=== PATIENT | female | born 1970 | race Caucasian/White ===

== ENCOUNTER 2018-06-17 08:58 | Emergency (ER) | payer BC ==
[~2018-06-17] VITALS: Ht 167.6 cm; Wt 83.8 kg
[2018-06-17 09:03] VITALS: TEMP 36.6; Ht 167.6 cm; Wt 83.8 kg
[2018-06-17] MEDS ORDERED: CYCLOBENZAPRINE HCL 10 MG TAB PO STA (09:46)
[2018-06-17] MEDS ORDERED: KETOROLAC TROMETHAMINE 60 MG/2 ML VIAL IM STA (09:46)
--- NOTE | 2018-06-17 10:36 | DIAGNOSTIC IMAGING REPORT ---
L-SPINE MIN 4 VIEWS ROUTINE HISTORY: 47 years-old Female low back pain acute low back pain without known injury COMPARISON: None available TECHNIQUE: 5 views of the lumbar spine FINDINGS: 5 nonrib-bearing lumbar type vertebral segments are present. No spondylolysis or spondylolisthesis. Moderate intervertebral disc space narrowing at L5-S1 with at least mild multilevel intervertebral disc space narrowing and spondylitic spurring. Mild multilevel facet arthrosis. No spondylolysis or spondylolisthesis. Surgical suture material projects over the left mid and left upper abdomen. Moderate formed colonic stool. Calcification of the aorta. IMPRESSION: 1. No acute fracture or subluxation. 2. Degenerative changes as above with moderate intervertebral disc space narrowing at L5-S1. 3. Moderate formed colonic stool suggests constipation. The above report was generated using voice recognition software. It may contain grammatical, syntax or spelling errors. Electronically signed by: Dwain Robledo M.D. 06/17/2018 10:35 AM Dictated Date/Time: 06/17/2018 10:33 AM
[2018-06-17] MEDS ORDERED: DICL1GEL12 TD (10:47)
[2018-06-17] MEDS ORDERED: CYCL5TAB PO (10:47)
--- NOTE | 2018-06-17 10:48 | EMERGENCY ROOM VISIT NOTE ---
ED Visit Note First contact with patient: 09:09 CHIEF COMPLAINT: Low back pain HISTORY OF PRESENT ILLNESS: This 47-year-old female patient presents to the emergency department, ambulatory, complaining of pain in the low back which began 3 days ago. The patient states she recently got a puppy and has been bending and lifting more than normal. She states today she is unable to bend down to get the dog leash. She states the pain seems to improve throughout the day, however seem to get worse today. She does report history of a bulging disc at 21 years old. She reports pain with sitting and standing, and feeling better with hunching of her lying down. The pain was gradual in onset, is now constant and worse with movement. The patient notes the pain as sharp and a 8/ 10. The patient has taken no medications for relief of the pain. The patient denies any loss of control of their bowel or bladder functions. There has been no leg numbness or weakness, and no change in sensation. No nausea or vomiting or abdominal pain. No chest pain or shortness of breath. No dysuria or increased urinary frequency. REVIEW OF SYSTEMS: A 10 system review of systems was performed with positives and pertinent negatives listed in the history of present illness. All other systems were reviewed and are negative. ALLERGIES: None MEDICATIONS: None PMH: Gastric bypass SOCIAL HISTORY: The patient lives locally with family. She denies drug, alcohol, tobacco use. PHYSICAL EXAM: VITALS: Vitals are noted on the nurse's note and reviewed by myself. Vital signs stable. GENERAL: This is a 47-year-old white female, in no acute distress, nondiaphoretic, well-developed well-nourished. SKIN: The skin was without rashes, erythema, edema, or bruising. Capillary refill less than 2 seconds. NECK: Supple without nuchal rigidity. No cervical spine tenderness. No paraspinous muscle tenderness. HEART: Regular rate and rhythm without murmurs gallops or rubs. LUNGS: Clear to auscultation bilaterally without wheezes, rales or rhonchi. ABDOMEN: Positive bowel sounds x 4. Normal tympanic percussion. Soft, nontender, without masses or organomegaly. Choi sign negative. Negative CVA tenderness bilaterally. MUSCULOSKELETAL: No muscle atrophy, erythema, or edema noted of the back. There is mild tenderness over the lumbar spinous processes. There is tenderness over the paraspinous muscles on the right. There is no tenderness over the thoracic spine or paraspinous muscles. There are no muscle spasms present. The patient is slow to move around with maximum tenderness with lying from a sitting position. Negative bilateral straight leg raise test. NEURO: Patient was alert and oriented to person place and time. Normal sensation to light and sharp touch. Deep tendon reflexes 2+ in the lower extremities. Dorsalis pedis pulse 2+ bilaterally. Strength 5/5 and equal in the bilateral lower extremities. RADIOLOGY: L-SPINE MIN 4 VIEWS ROUTINE HISTORY: 47 years-old Female low back pain acute low back pain without known injury COMPARISON: None available TECHNIQUE: 5 views of the lumbar spine FINDINGS: 5 nonrib-bearing lumbar type vertebral segments are present. No spondylolysis or spondylolisthesis. Moderate intervertebral disc space narrowing at L5-S1 with at least mild multilevel intervertebral disc space narrowing and spondylitic spurring. Mild multilevel facet arthrosis. No spondylolysis or spondylolisthesis. Surgical suture material projects over the left mid and left upper abdomen. Moderate formed colonic stool. Calcification of the aorta. IMPRESSION: 1. No acute fracture or subluxation. 2. Degenerative changes as above with moderate intervertebral disc space narrowing at L5-S1. 3. Moderate formed colonic stool suggests constipation. The above report was generated using voice recognition software. It may contain grammatical, syntax or spelling errors. Electronically signed by: Dwain Robledo M.D. 06/17/2018 10:35 AM Dictated Date/Time: 06/17/2018 10:33 AM EMERGENCY DEPARTMENT COURSE: The patient was seen and evaluated as above. She was given Toradol and cyclobenzaprine for pain. X-ray performed reviewed by myself and radiologist as above. I discussed the findings with the patient at bedside. I did discuss with her the degenerative changes with moderate intervertebral disc space narrowing at L5-S1 with the patient and encouraged her to monitor this with her PCP. She was reassessed and is feeling significantly better. Suspect a muscular strain as the cause of the patient's symptoms, and encouraged her to use anti-inflammatory medications and muscle relaxers with close follow-up by the primary care provider. The patient verbalized agreement and understanding. All questions answered to patient's satisfaction prior to discharge. Discharge instructions reviewed, patient was discharged home in good condition. I attest that I have personally reviewed the patient's current medication list. Blood Pressure Screening: Patient was found to have a slightly elevated blood pressure due to circumstances. I do not believe that the patient requires hypertension monitoring. Etiologies such as lumbago, sciatica, cauda equina, epidural abscess, osteomyelitis, fracture, aortic disease, metastatic disease, infection, renal colic, gastrointestinal, as well as others were entertained. DIAGNOSIS: Lumbar strain The chart was completed utilizing [employer] voice recognition software. Grammatical errors, random word insertions, pronoun errors, and incomplete sentences are an occasional consequence of this system due to software limitations, ambient noise, and hardware issues. Any formal questions or concerns about the content, text, or information contained within the body of this dictation should be directly addressed to the provider for clarification. Current/Historical Medications Scheduled PRN Cyclobenzaprine Hcl (Flexeril), 10 MG PO TID PRN for Muscle Spasms Diclofenac Sodium (Topical) (Voltaren 1% Top Gel), 1 APPLN TD QID PRN for Pain Allergies Coded Allergies: No Known Allergies (Unverified , 06/17/18) Vital Signs Date Time Temp Pulse Resp B/P (MAP) Pulse Ox O2 Delivery O2 Flow Rate FiO2 06/17/18 10:55 51 18 134/85 98 06/17/18 10:44 51 18 134/85 98 Room Air 06/17/18 09:03 36.6 59 18 148/94 97 Room Air Medications Administered Medications (Trade) Dose Ordered Sig/Christina Route Start Time Stop Time Status Last Admin Dose Admin Ketorolac Tromethamine (Toradol Inj) 60 mg NOW STAT IM 06/17/18 09:46 06/17/18 09:48 DC 06/17/18 09:52 60 MG Cyclobenzaprine HCl (Flexeril Tab) 10 mg NOW STAT PO 06/17/18 09:46 06/17/18 09:48 DC 06/17/18 09:52 10 MG Departure Information Impression Primary Impression: Strain of lumbar region Dispostion Home / Self-Care Condition GOOD Prescriptions Diclofenac Sodium (Topical) (VOLTAREN 1% TOP GEL) 1 % Gel 1 APPLN TD QID Y for Pain, #1 TUBE Prov: Marija Main, PA-C 06/17/18 Cyclobenzaprine Hcl (FLEXERIL) 5 Mg Tab 10 MG PO TID Y for Muscle Spasms, #15 TAB PRN Prov: Marija Main PA-C 06/17/18 Referrals Teddy Triana D.O. (PCP) Patient Instructions ED Low Back Pain Injury, My [facility] Additional Instructions You have been treated in the Emergency Department for Back Pain. You have received muscle relaxers in the emergency department which impairs your ability to operate a vehicle. Do not operate a vehicle for 4-6 hours after taking this medication or until you know how it will affect you. You have been prescribed Flexeril (cyclobenzaprine) 1 tabs orally, three times per day. Do NOT exceed 30 mg (3 tabs) per day. Take your first dose at bedtime as it can make you drowsy. Always take all medications as prescribed. Use Voltaren gel 4 times daily in the affected area to help with pain and inflammation. For pain control, you can use the following [id number] medicines (if >12 yo): Acetaminophen(Tylenol) may be used for fever or pain. Use 1000mg every six hours as needed. Avoid using more than 3000mg in a 24 hour period. If this is an acute injury, ice can be applied to the area of pain for the first 3 days to help decrease pain and inflammation. After the first 3 days, a heating pad can be used over the area for continued soothing relief. You should schedule a follow-up appointment in 2-3 days with your Primary Care Provider for further evaluation and treatment of your back pain. As discussed, I do recommend physical therapy if no improvement by Thursday. Return to the Emergency Department if your current symptoms worsen despite treatment course outlined above, or if you develop any of the following symptoms : intractable pain despite aforementioned treatment course, loss of control of your bowel or bladder, numbness or tingling in your groin, or development of a fever. Work Instructions Return To Work: 2 days Problem Qualifiers Primary Impression: Strain of lumbar region Encounter type: initial encounter Qualified Codes: S39.012A - Strain of muscle, fascia and tendon of lower back, initial encounter
[2018-06-17 10:55] VITALS: BP 134/85; PULSE 51; O2SAT 98
== END 2018-06-17 10:57 | disposition home or self-care (01) ==
LOC: C.EDB 09:00
DX: S39.012A Strain of muscle, fascia and tendon of lower back, initial encounter (principal); X50.9XXA Other and unspecified overexertion or strenuous movements or postures, initial encounter; Y93.89 Activity, other specified; Y99.8 Other external cause status